=== PATIENT | male | born 1970 | race Caucasian/White ===

== ENCOUNTER → 2016-08-18 | Outpatient (CLI) | payer MEDICARE ==
[~2016-08-18] MED LIST: BACT800T5 PO; CLEO300C2 PO; COMBAER6 INH; DOXY100C PO; FLOM5CAP PO; FLON0.054; FLON1SPR; GEOD1CAP PO; IBUP800T23 PO; IBUP80TA PO; KLON0.5T PO; LAMI1TAB8 PO; LAMO300T PO; LEVA500T PO; LYRI100C10 PO; MIRT15TA3 PO; MUCI600T34 PO; NICO21DI5 TD; OXYC-299 PO; OXYC-517 PO; PERCOCET PO; PRIS100T PO; SELE6PA TD; SING10TA32 PO; VITATAB11 PO
== END ==
LOC: M OUTALCOH 09:08
PROVIDERS: ATTEND Psychiatry & Neurology Psychiatry
DX: F12.10 Cannabis abuse, uncomplicated (principal); F11.10 Opioid abuse, uncomplicated

== ENCOUNTER 2016-08-25 09:51 | Outpatient (RCR) | payer MEDICARE | END 2016-08-26 | disposition home or self-care (01) | LOC: M OUTALCOH 09:51 | PROVIDERS: ATTEND Psychiatry & Neurology Psychiatry | DX: F12.10 Cannabis abuse, uncomplicated (principal); F11.10 Opioid abuse, uncomplicated; F17.200 Nicotine dependence, unspecified, uncomplicated ==

== ENCOUNTER 2016-09-18 13:30 | Outpatient (RCR) | payer MEDICARE, MEDICAID | END 2016-09-23 | LOC: M OUTALCOH 13:30 | PROVIDERS: ATTEND Psychiatry & Neurology Psychiatry | DX: F12.10 Cannabis abuse, uncomplicated (principal); F11.10 Opioid abuse, uncomplicated; F17.200 Nicotine dependence, unspecified, uncomplicated ==

== ENCOUNTER 2016-10-23 16:00 | Outpatient (RCR) | payer MEDICARE, MEDICAID | END 2016-10-24 | LOC: M OUTALCOH 16:00 | PROVIDERS: ATTEND Psychiatry & Neurology Psychiatry | DX: F12.10 Cannabis abuse, uncomplicated (principal); F11.10 Opioid abuse, uncomplicated; F17.200 Nicotine dependence, unspecified, uncomplicated ==

== ENCOUNTER 2016-11-04 16:00 | Outpatient (RCR) | payer MEDICARE, MEDICAID | END 2016-11-23 | LOC: M OUTALCOH 16:00 | PROVIDERS: ATTEND Psychiatry & Neurology Psychiatry | DX: F12.10 Cannabis abuse, uncomplicated (principal); F11.10 Opioid abuse, uncomplicated; F17.200 Nicotine dependence, unspecified, uncomplicated ==

== ENCOUNTER → 2016-11-11 | Outpatient (CLI) | payer MEDICARE, MEDICAID ==
--- NOTE | 2016-11-11 19:02 | ECGEPIP ---
Stationary ECG Study [facility] Test Date: 2016-11-11 Pat Name: SAM CAPONE Department: Room: - Gender: M Fisher Trot Line: YVES : 1970 Requested By: Curtis Dimas Order Number: [id number] Reading MD: Paxton Bowden Measurements Intervals [place] Rate: 109 P: 56 LA: 152 QRS: 61 QRSD: 83 T: 78 QT: 317 QTc: 429 Interpretive Statements SINUS TACHYCARDIA WITH OCCASIONAL SUPRAVENTRICULAR PREMATURE COMPLEXES ABNORMAL RHYTHM ECG Electronically Signed On 11-11-2016 19:02:08 EDT by Paxton Bowden
== END ==
LOC: M EKG 14:39
PROVIDERS: ATTEND Family Medicine Addiction Medicine
DX: R00.2 Palpitations (principal)

== ENCOUNTER → 2019-09-08 | Outpatient (REF) | payer OTHER ==
[~2019-09-08] MED LIST changes: +FLOM0.4C39 PO; -FLOM5CAP PO; +IBUP1TAB7 PO; -IBUP800T23 PO; +LEVA1TAB2 PO; -LEVA500T PO; -LYRI100C10 PO; -MUCI600T34 PO; +MUCI600T37 PO; -NICO21DI5 TD; +NICO21DI6 TD; +OXYC-141 PO; -OXYC-299 PO; +PREG100CA PO
[2019-09-08 14:23] LABS: ALBUMIN 3.8 GM/DL (3.2-5.2); ALT/SGPT 29 U/L (12-78); BILIRUBIN,TOTAL 0.3 MG/DL (0.2-1.0); BLOOD UREA NITROGEN 12 MG/DL (7-18); CARBON DIOXIDE LEVEL 25 MEQ/L (21-32); CHLORIDE LEVEL 107 MEQ/L (98-107); CHOLESTEROL LEVEL 220 MG/DL (<200); CHOLESTEROL RISK RATIO 5.789 (<5); CREATININE FOR GFR 0.83 MG/DL (0.70-1.30); FREE T4 1.15 NG/DL (0.76-1.46); GLOMERULAR FILTRATION RATE > 60.0 (>60); GLUCOSE, FASTING 92 MG/DL (70-100); HDL CHOLESTEROL 38 MG/DL (>40); LDL CHOLESTEROL 147 MG/DL (<100); NON-HDL-C 182 MG/DL; POTASSIUM SERUM 4.3 MEQ/L (3.5-5.1); SODIUM LEVEL 140 MEQ/L (136-145); TOTAL PROTEIN 7.1 GM/DL (6.4-8.2); TRIGLYCERIDES LEVEL 175 MG/DL (<150)
[2019-09-08 14:25] LABS: TOTAL 25(OH) VITAMIN D 18.9 NG/ML (30.0-100.0)
[2019-09-08 14:31] LABS: HEMOGLOBIN A1c 5.7 %
[2019-09-08 14:53] LABS: BASO # 0.1 10^3/uL (0.0-0.2); BASO % 0.6 % (0.0-1.0); EOS # 0.4 10^3/uL (0.0-0.5); EOS % 2.9 % (0.0-3.0); HEMATOCRIT 48.3 % (42.0-52.0); HEMOGLOBIN 15.9 g/dl (13.5-17.5); LYMPH # 3.2 10^3/uL (1.5-5.0); LYMPH % 25.6 % (24.0-44.0); MEAN CORPUSCULAR HEMOGLOBIN 30.3 pg (27.0-33.0); MEAN CORPUSCULAR HGB CONC 32.9 g/dl (32.0-36.5); MEAN CORPUSCULAR VOLUME 92.2 fl (80.0-96.0); MONO # 0.8 10^3/uL (0.0-0.8); MONO % 6.6 % (0.0-5.0); NEUTROPHILS % 63.7 % (36.0-66.0); PLATELET COUNT, AUTOMATED 350 10^3/uL (150-450); RED BLOOD COUNT 5.24 10^6/uL (4.30-6.10); WHITE BLOOD COUNT 12.6 10^3/uL (4.0-10.0)
== END ==
LOC: M LAB REF 12:15
PROVIDERS: ATTEND Nurse Practitioner Family
DX: N40.1 Benign prostatic hyperplasia with lower urinary tract symptoms (principal); E55.9 Vitamin D deficiency, unspecified; E78.5 Hyperlipidemia, unspecified; M54.9 Dorsalgia, unspecified; F41.8 Other specified anxiety disorders; M79.7 Fibromyalgia
CPT/HCPCS: 80053; 80061; 82306; 83036; 84439; 84443; 85025; G0103

== ENCOUNTER → 2019-12-08 | Outpatient (REF) | payer OTHER ==
[2019-12-08 13:39] LABS: BASO # 0.1 10^3/uL (0.0-0.2); BASO % 0.7 % (0.0-1.0); EOS # 0.5 10^3/uL (0.0-0.5); HEMATOCRIT 45.3 % (42.0-52.0); HEMOGLOBIN 14.9 g/dl (13.5-17.5); LYMPH # 3.3 10^3/uL (1.5-5.0); LYMPH % 31.6 % (24.0-44.0); MEAN CORPUSCULAR HEMOGLOBIN 29.9 pg (27.0-33.0); MEAN CORPUSCULAR HGB CONC 32.9 g/dl (32.0-36.5); MONO % 9.4 % (0.0-5.0); NEUTROPHILS # 5.5 10^3/uL (1.5-8.5); NEUTROPHILS % 52.7 % (36.0-66.0); PLATELET COUNT, AUTOMATED 320 10^3/uL (150-450); RED BLOOD COUNT 4.98 10^6/uL (4.30-6.10); WHITE BLOOD COUNT 10.5 10^3/uL (4.0-10.0)
[2019-12-08 14:07] LABS: HEMOGLOBIN A1c 5.7 %
[2019-12-08 14:09] LABS: ALBUMIN 3.7 GM/DL (3.2-5.2); ALT/SGPT 41 U/L (12-78); BILIRUBIN,TOTAL 0.3 MG/DL (0.2-1.0); BLOOD UREA NITROGEN 11 MG/DL (7-18); CALCIUM LEVEL 8.7 MG/DL (8.5-10.1); CARBON DIOXIDE LEVEL 28 MEQ/L (21-32); CHLORIDE LEVEL 104 MEQ/L (98-107); CHOLESTEROL LEVEL 219 MG/DL (<200); CHOLESTEROL RISK RATIO 6.843 (<5); CREATININE FOR GFR 0.74 MG/DL (0.70-1.30); GLOMERULAR FILTRATION RATE > 60.0 (>60); GLUCOSE, FASTING 89 MG/DL (70-100); HDL CHOLESTEROL 32 MG/DL (>40); LDL CHOLESTEROL 138 MG/DL (<100); NON-HDL-C 187 MG/DL; POTASSIUM SERUM 4.5 MEQ/L (3.5-5.1); SODIUM LEVEL 138 MEQ/L (136-145); TOTAL 25(OH) VITAMIN D 15.7 NG/ML (30.0-100.0); TOTAL PROTEIN 7.3 GM/DL (6.4-8.2); TRIGLYCERIDES LEVEL 247 MG/DL (<150)
== END ==
LOC: M LAB REF 12:22
PROVIDERS: ATTEND Nurse Practitioner Family
DX: R73.03 Prediabetes (principal); E78.5 Hyperlipidemia, unspecified; R03.0 Elevated blood-pressure reading, without diagnosis of hypertension; F17.200 Nicotine dependence, unspecified, uncomplicated; E55.9 Vitamin D deficiency, unspecified; K21.9 Gastro-esophageal reflux disease without esophagitis

== ENCOUNTER 2020-11-30 05:54 | Emergency (ER) | payer OTHER ==
[~2020-11-30] VITALS: Ht 170.2 cm; Wt 97.3 kg
[2020-11-30] MEDS ORDERED: NS 1,000 ML IV ONE (07:00)
[2020-11-30] MEDS ORDERED: ONDANSETRON 4MG/2ML VIAL IV ONE (07:00)
--- NOTE | 2020-11-30 07:42 | REP ---
INDICATION: Abdominal Pain. COMPARISON: Comparison chest x-ray March 24, 2014.. TECHNIQUE: Three views including upright chest radiograph. FINDINGS: Upright chest radiograph is unremarkable. There is no evidence of infiltrate or free subdiaphragmatic air. Heart size is normal. Pulmonary vasculature is not increased. Pleural angles are sharp. Supine and erect views of the abdomen demonstrate a normal bowel gas pattern. The psoas margins and the flank stripes are intact. There is no evidence of mass, organomegaly, or pathologic calcification. IMPRESSION: Negative acute abdominal series. <Electronically signed by Mario James > 11/30/20 0784
[2020-11-30 07:53] LABS: BASO # 0.1 10^3/uL (0.0-0.2); BASO % 0.4 % (0.0-1.0); EOS # 0.2 10^3/uL (0.0-0.5); EOS % 1.4 % (0.0-3.0); HEMATOCRIT 41.6 % (42.0-52.0); HEMOGLOBIN 14.2 g/dl (13.5-17.5); LYMPH # 2.5 10^3/uL (1.5-5.0); LYMPH % 14.3 % (24.0-44.0); MEAN CORPUSCULAR HEMOGLOBIN 30.3 pg (27.0-33.0); MEAN CORPUSCULAR HGB CONC 34.1 g/dl (32.0-36.5); MEAN CORPUSCULAR VOLUME 88.9 fl (80.0-96.0); MONO # 0.8 10^3/uL (0.0-0.8); MONO % 4.7 % (2.0-8.0); NEUTROPHILS # 13.5 10^3/uL (1.5-8.5); NEUTROPHILS % 78.5 % (36.0-66.0); PLATELET COUNT, AUTOMATED 330 10^3/uL (150-450); RED BLOOD COUNT 4.68 10^6/uL (4.30-6.10); WHITE BLOOD COUNT 17.1 10^3/uL (4.0-10.0)
[2020-11-30 08:18] LABS: ALBUMIN 3.6 GM/DL (3.2-5.2); ALT/SGPT 39 U/L (12-78); BILIRUBIN,DIRECT < 0.1 MG/DL (0.0-0.2); BILIRUBIN,TOTAL 0.6 MG/DL (0.2-1.0); BLOOD UREA NITROGEN 11 MG/DL (7-18); CALCIUM LEVEL 8.8 MG/DL (8.5-10.1); CARBON DIOXIDE LEVEL 24 MEQ/L (21-32); CHLORIDE LEVEL 111 MEQ/L (98-107); CK-MB VALUE MASS 3.3 NG/ML (<3.6); CPK CREATINE PHOSPHOKINASE 773 U/L (39-308); CREATININE FOR GFR 0.75 MG/DL (0.70-1.30); GLOMERULAR FILTRATION RATE > 60.0 (>60); GLUCOSE, FASTING 111 MG/DL (70-100); LIPASE 973 U/L (73-393); MB/CK RELATIVE INDEX 0.43 (< OR =4); POTASSIUM SERUM 4.4 MEQ/L (3.5-5.1); SODIUM LEVEL 141 MEQ/L (136-145); TROPONIN I < 0.02 NG/ML (< 0.10)
[2020-11-30 08:21] LABS: AMPHETAMINES LEVEL URINE NEGATIVE (NEGATIVE); BARBITURATES URINE NEGATIVE (NEGATIVE); BENZODIAZEPINES URINE NEGATIVE (NEGATIVE); CANNABINOIDS URINE POSITIVE (NEGATIVE); COCAINE METABOLITE URINE NEGATIVE (NEGATIVE); METHADONE URINE NEGATIVE (NEGATIVE); OPIATES URINE NEGATIVE (NEGATIVE); PHENCYCLIDINE URINE NEGATIVE (NEGATIVE)
[2020-11-30] MEDS ORDERED: METOCLOPRAMIDE INJ 10MG/2ML VIAL (J2765 PER 1) IV ONE (08:30)
[2020-11-30] MEDS ORDERED: HALOPERIDOL 5MG/ML VIAL (J1630 PER 1) IV STA (09:04)
[2020-11-30] MEDS ORDERED: ISOVUE-370 76% 100ML VIAL As Ordered ONE (09:12)
--- NOTE | 2020-11-30 09:43 | REP ---
INDICATION: mid abd pain, n/v, leukocytosis COMPARISON: 01/25/2016. TECHNIQUE: CT Scan of the abdomen and pelvis was performed with intravenous administration of 100 cc of Isovue 370, without oral contrast. Sagittal and coronal reconstruction images are performed. FINDINGS: Lung bases: 2 tiny calcified granulomas seen in the right lower lobe. Liver: There is diffuse fatty infiltration of the liver. Calcified granulomas seen at the dome of the liver. Gallbladder: Unremarkable. Spleen: Normal. Adrenals: Bilateral adrenal nodules are unchanged in size, on the right measuring approximately 3.3 cm in maximum diameter and on the left 1.8 cm. There are 2 new coarse calcifications in superior aspect of the right adrenal nodule. Pancreas: Normal. Kidneys: Normal. Small and large bowel: There is diverticulosis of the left colon with no CT evidence of acute diverticulitis.. Free fluid: None. Abdominal aorta: No aneurysm or dissection. Adenopathy: None. Appendix: Prior appendectomy. Osseous structures: There is spondylolysis of L5 with very mild anterior grade 1 spondylolisthesis of L5 on S1. There are mild degenerative disc changes at L4-5 and L5-S1.. Pelvis: No mass. IMPRESSION: Chronic findings as discussed above. No CT evidence of acute pathology in the abdomen or pelvis. <Electronically signed by Kenton Gonzalez > 11/30/20 0939
[2020-11-30] MEDS ORDERED: cloNIDine HCL 0.3 MG/24 HR PATCH TOP STA (10:34)
[2020-11-30] MEDS ORDERED: REGL5TAB2 PO (10:37)
[2020-11-30 10:52] VITALS: BP 138/98
--- NOTE | 2020-12-02 08:39 | ED PDOC ---
Post-Departure Follow-Up radiology report faxed to balbina Manriquez Sarah MD December 02, 2020 08:39
== END 2020-11-30 11:21 | disposition home or self-care (01) ==
LOC: M ED 05:54
DX: F11.23 Opioid dependence with withdrawal (principal); R10.9 Unspecified abdominal pain; R11.2 Nausea with vomiting, unspecified; F43.10 Post-traumatic stress disorder, unspecified; J44.9 Chronic obstructive pulmonary disease, unspecified; K85.10 Biliary acute pancreatitis without necrosis or infection; E27.8 Other specified disorders of adrenal gland; I10 Essential (primary) hypertension; G47.30 Sleep apnea, unspecified; F17.200 Nicotine dependence, unspecified, uncomplicated; F12.10 Cannabis abuse, uncomplicated
CPT/HCPCS: 74021; 74177; 80048; 80076; 80307; 81001; 82550; 82553; 83690; 84484; 85025; 96361; 96374; 96375; 99284; J1630; J2405; J2765; Q9967

== ENCOUNTER → 2021-03-21 | Outpatient (REF) | payer OTHER ==
[~2021-03-21] MED LIST changes: -DOXY100C PO; +DOXY100C3 PO; +REGL5TAB2 PO
[2021-03-21 18:43] LABS: BASO # 0.1 10^3/uL (0.0-0.2); BASO % 0.4 % (0.0-1.0); EOS # 0.3 10^3/uL (0.0-0.5); EOS % 2.5 % (0.0-3.0); HEMATOCRIT 41.4 % (42.0-52.0); HEMOGLOBIN 13.7 g/dl (13.5-17.5); LYMPH # 2.3 10^3/uL (1.5-5.0); MEAN CORPUSCULAR HEMOGLOBIN 30.7 pg (27.0-33.0); MEAN CORPUSCULAR HGB CONC 33.1 g/dl (32.0-36.5); MEAN CORPUSCULAR VOLUME 92.8 fl (80.0-96.0); MONO # 0.6 10^3/uL (0.0-0.8); MONO % 4.7 % (2.0-8.0); NEUTROPHILS # 8.4 10^3/uL (1.5-8.5); NEUTROPHILS % 71.7 % (36.0-66.0); RED BLOOD COUNT 4.46 10^6/uL (4.30-6.10); WHITE BLOOD COUNT 11.7 10^3/uL (4.0-10.0)
[2021-03-21 19:15] LABS: HEMOGLOBIN A1c 5.9 %
[2021-03-21 19:16] LABS: BLOOD UREA NITROGEN 18 MG/DL (7-18); CALCIUM LEVEL 9.4 MG/DL (8.5-10.1); CARBON DIOXIDE LEVEL 24 MEQ/L (21-32); CHLORIDE LEVEL 109 MEQ/L (98-107); CREATININE FOR GFR 0.79 MG/DL (0.70-1.30); GLOMERULAR FILTRATION RATE > 60.0 (>60); GLUCOSE, FASTING 102 MG/DL (70-100); POTASSIUM SERUM 4.6 MEQ/L (3.5-5.1); SODIUM LEVEL 140 MEQ/L (136-145)
[2021-03-21 19:17] LABS: ALBUMIN 4.1 GM/DL (3.2-5.2); ALT/SGPT 47 U/L (12-78); BILIRUBIN,TOTAL 0.4 MG/DL (0.2-1.0); CHOLESTEROL LEVEL 241 MG/DL (<200); CHOLESTEROL RISK RATIO 6.342 (<5); FERRITIN 122 NG/ML (26-388); HDL CHOLESTEROL 38 MG/DL (>40); IRON (FE) 65 UG/DL (65-175); LDL CHOLESTEROL 162 MG/DL (<100); NON-HDL-C 203 MG/DL; PERCENT SATURATION 21.2 % (19.7-50.0); TOTAL IRON BINDING CAPACITY 307 UG/DL (250-450); TOTAL PROTEIN 7.4 GM/DL (6.4-8.2); TRIGLYCERIDES LEVEL 203 MG/DL (<150)
[2021-03-21 19:19] LABS: TOTAL 25(OH) VITAMIN D 19.9 NG/ML (30.0-100.0)
[2021-03-21 19:26] LABS: FOLATE 13.2 NG/ML; VITAMIN B12 LEVEL 553 PG/ML
[2021-03-21 19:58] LABS: HEPATITIS C VIRUS ABY INDEX < 0.0 INDEX (<0.8)
[2021-03-21 19:59] LABS: HIV 1&2 SCREEN CENTAUR NEGATIVE (NEGATIVE)
[2021-03-25 23:14] LABS: PSA TOTAL 1.5 ng/mL (0.0-4.0)
== END ==
LOC: M LAB REF 17:57
PROVIDERS: ATTEND Nurse Practitioner Family
DX: K21.9 Gastro-esophageal reflux disease without esophagitis (principal); F31.9 Bipolar disorder, unspecified; F17.200 Nicotine dependence, unspecified, uncomplicated; R73.03 Prediabetes; E78.5 Hyperlipidemia, unspecified; Z79.899 Other long term (current) drug therapy

== ENCOUNTER → 2021-05-31 | Outpatient (CLI) | payer OTHER ==
[~2021-05-31] MED LIST changes: +OMEP-218 PO; +SUBO8MIS SL; +TAMS1CAP17 PO
== END ==
LOC: M LABSMTC 11:30
PROVIDERS: ATTEND Anesthesiology
DX: Z01.818 Encounter for other preprocedural examination (principal); Z11.52 Encounter for screening for COVID-19

== ENCOUNTER → 2021-06-05 | Day surgery (SDC) | payer OTHER ==
[~2021-06-05] VITALS: Ht 167.6 cm; Wt 97.0 kg
[~2021-06-05] MED LIST changes: +BUPIVACAINE HCL 0.5% 30 ML VIAL As Ordered ONE; +LIDOCAINE 1% MDV 20ML VIAL As Ordered ONE; +LR 1,000 ML IV ONE; +ceFAZolin SOD 2 GM in IV 1 EA IV ONE; +dexameTHASONE 4 MG/ML 1ML VIAL (J1100 PER 1MG) As Ordered ONE
--- OUTSIDE RECORDS SUMMARY | 2021-06-05 10:37 | CCD ---
Author Organization Unknown Address [address] [place] [address] Phone [phone] Care Team Providers Care Special Diet Cook Name Role Phone Colleen Manriquez Unavailable Unavailable Allergies Code Code System Name Reaction Severity Status Onset NKDA Medications Name Status Start Date Stop Date amoxicillin 500 mg capsule TAKE TWO CAPSULES BY MOUTH FOR FIRST DOSE THEN TAKE ONE CAPSULE BY MOUTH EVERY 8 HOURS UNTIL GONE Completed 03/13/2021 buprenorphine 8 mg-naloxone 2 mg subling ual film PLACE 2 1/2 FILMS UNDER THE TONGUE ONCE DAILY FOR OPIOID DEPENDENCE MAXIMUM DAILY DOSE 2 1/2 FILMS Active Not available gabapentin 100 mg capsule TAKE ONE CAPSULE BY MOUTH TWICE DAILY Completed 0 03/13/2021 ibuprofen 800 mg tablet TAKE ONE TABLET BY MOUTH EVERY EIGHT HOURS NEEDED Completed 03/13/2021 naproxen 500 mg tablet TAKE ONE TABLET BY MOUTH TWICE DAILY Active No t available Nicotrol 10 mg inhalation cartridge use as directed to assist with smoking cessation. Active Not available omeprazole 20 mg capsule,delayed release TAKE ONE CAPSULE BY MOUTH ONCE DAILY Active No t available tamsulosin 0.4 mg capsule TAKE ONE CAPSULE BY MOUTH ONCE DAILY Active No t available Problems Name Status Onset Date Source Bipolar Disorder Active 03/07/2015 History Obstructive Sleep Apnea Syndrome Active 03/07/2015 History Fibromyalgia Active 03/07/2015 History Emotional State Finding Active 03/07/2015 History Backache Active 04/23/2015 History Disorder of Prostate Active 05/16/2015 History Vitamin D Deficiency Active 12/18/2015 History Hyperlipidemia Active 12/18/2015 History Cellulitis of Left Upper Limb Active 04/11/2016 Hi story Current Drug User Active 05/16/2016 History Palpitations Active 11/11/2016 History Cough Active 06/12/2017 History Finding of Esophagus Active 06/12/2017 History Nondependent Opioid Abuse in Remission Active 8 History Finding of Neck Region Active 02/16/[address] Concept Active 02/16/2019 History Lower Urinary Tract Finding Active 02/16/2019 Hist ory Nicotine Dependence Active 08/11/2019 History Elevated Blood-pressure Reading without Diagnosis of Hyperte nsion Active 08/11/2019 History Clinical Finding Active 08/11/2019 History Generalized Anxiety Disorder Active 09/05/2019 His tory Prediabetes Active 09/15/2019 History Finding by Site Active 09/15/2019 History Mild Recurrent Major Depression Active 09/19/2019 History Posttraumatic Stress Disorder Active 09/19/2019 Hi story Ear Finding Active 12/15/2019 History Hearing Finding Active 12/15/2019 History Patient Asked to Attend Active 12/15/2019 History Dental Caries on Smooth Surface Penetrating into Pulp Active 01/06/2020 History Procedures Notes: No known surgical history Results Lab Results Date Name Specimen Result Interpretation Description Value Range Status Address 03/21/2021 HbA1C (Hemoglobin a1C), Blood Blood venous Normal Hemoglobin a1C 5.9 % [facility]: [address] [place] [address] Blood venous High Estimated Average Glucose 123 mg/dL 60-110 mg/dL [facility]: [address] [place] [address] 03/21/2021 CBC W/ Auto Diff Blood venous High White Blood C ount 11.7 10 4.0-10.0 10 [facility]: [address] [facility] Blood venous Normal Red Blood Count 4.46 10 4.30- 6.10 10 [facility]: [address] [facility] Blood venous Normal Hemoglobin 13.7 g/dL 13.5-17. 5 g/dL [facility]: [address] [facility] Blood venous Low Hematocrit 41.4 % 42.0-52.0 % [facility]: [address] [facility] Blood venous Normal Mean Corpuscular Volume 92.8 fL 80.0-96.0 fL [facility]: [address] [facility] Blood venous Normal Mean Corpuscular Hemoglob in 30.7 pg 27.0-33.0 pg [facility]: [address] [facility] Blood venous Normal Mean Corpuscular HGB Conc 33.1 g/dL 32.0-36.5 g/dL [facility]: [address] [facility] Blood venous Normal Red Cell Distribution Wid th 14.2 % 11.5-14.5 % [facility]: [address] [place] [address] Blood venous Normal Platelet Count, Automated tnp 10 150-450 10 [facility]: [address] [place] [address] Blood venous High Neutrophils % 71.7 % 36.0-66. 0 % [facility]: [address] [place] [address] Blood venous Low Lymph % 20.0 % 24.0-44.0 % [facility]: [address] [place] [address] Blood venous Normal Berks % 4.7 % 2.0-8.0 % [facility]: [address] [place] [address] Blood venous Normal Eos % 2.5 % 0.0-3.0 % [facility]: [address] [place] [address] Blood venous Normal Baso % 0.4 % 0.0-1.0 % [facility]: [address] [place] [address] Blood venous Normal Immature Granulocyte % 0.7 % 0-3.0 % [facility]: [address] [place] [address] Blood venous Normal Nucleated Red Blood Cell % 0. 0 % 0-0 % [facility]: [address] [place] [address] Blood venous Normal Neutrophils # 8.4 10 1.5-8.5 10 [facility]: [address] [place] [address] Blood venous Normal Lymph # 2.3 10 1.5-5.0 10 [facility]: [address] [place] [address] Blood venous Normal Berks # 0.6 10 0.0-0.8 10 [facility]: [address] [place] [address] Blood venous Normal Eos # 0.3 10 0.0-0.5 10 [facility]: [address] [place] [address] Blood venous Normal Baso # 0.1 10 0.0-0.2 10 [facility]: [address] [place] [address] 03/21/2021 CMP, Serum or Plasma Blood venous High Glu cose, Fasting 102 mg/dL 70-100 mg/dL [facility] nter: [address], [place] Blood venous Normal Blood Urea Nitrogen 18 mg/dL 7-18 mg/dL [facility]: [address] [facility] Blood venous Normal Creatinine for GFR 0.79 mg/dL 0.70-1.30 mg/dL [facility]: [address] [facility] Blood venous Normal Glomerular Filtration Rate > 60.0 >60 [facility]: [address] [facility] Blood venous Normal Sodium Level 140 mEq/L 136-14 5 mEq/L [facility]: [address] [facility] Blood venous Normal Potassium Serum 4.6 mEq/L 3.5 -5.1 mEq/L [facility]: [address] [facility] Blood venous High Chloride Level 109 mEq/L 98-1 07 mEq/L [facility]: [address] [facility] Blood venous Normal Carbon Dioxide Level 24 mEq/L 21-32 mEq/L [facility]: [address] [facility] Blood venous Low Anion Gap 7 mEq/L 8-16 mEq/L [facility]: [address] [facility] Blood venous Normal Calcium Level 9.4 mg/dL 8.5-1 0.1 mg/dL [facility]: [address] [facility] Blood venous Normal AST/SGOT 23 U/L 7-37 U/L [facility]: [address] [facility] Blood venous Normal ALT/SGPT 47 U/L 12-78 U/L [facility]: [address] [facility] Blood venous Normal Alkaline Phosphatase 108 U/L 45-117 U/L [facility]: [address] [facility] Blood venous Normal Bilirubin,total 0.4 mg/dL 0.2 -1.0 mg/dL [facility]: [address] [facility] Blood venous Normal Total Protein 7.4 gm/dL 6.4-8 .2 gm/dL [facility]: [address] [facility] Blood venous Normal Albumin 4.1 gm/dL 3.2-5.2 gm/ dL [facility]: [address] [place] [address] Blood venous Normal Albumin/globulin Ratio 1.2 [facility]: 0 [facility] 03/21/2021 Hepatitis C Ab, Serum Blood venous Normal Hepatitis C Virus Fe Index < 0.0 index <0.8 index [facility]: [address] [place] [address] 03/21/2021 Lipid Panel, Blood Blood venous High Trigl ycerides Level 203 mg/dL <150 mg/dL [facility] nter: [address] [facility] Blood venous High Cholesterol Level 241 mg/dL < 200 mg/dL [facility]: [address] [place] [address] Blood venous Low HDL Cholesterol 38 mg/dL >40 mg/dL [facility]: [address] [place] [address] Blood venous High LDL Cholesterol 162 mg/dL <10 0 mg/dL [facility]: [address] [place] [address] Blood venous Normal Non-hdl-c 203 mg/dL [facility]: [address] [place] [address] Blood venous High Cholesterol Risk Ratio 6.342 <5 [facility]: [address] [place] [address] 03/21/2021 TIBC (Total Iron-binding Capacity), Serum Normal Iron (Fe) 65 ug/dL 65-175 ug/dL [facility] nter: [address] [place] [address] Normal Total Iron Binding Capacity 307 ug/d L 250-450 ug/dL [facility]: [address] [place] [address] Normal Percent Saturation 21.2 % 19.7-50.0 % [facility]: [address] [place] [address] 03/21/2021 TSH + Free T4, Serum Blood venous Normal Thyroid Stimulating Hormone 1.410 uIU/mL 0.358-3.740 uIU/mL [facility]: [address] [place] [address] Blood venous Normal Free T4 1.10 NG/dL 0.76-1.46 NG/dL [facility]: [address] [place] [address] 03/21/2021 Vitamin B12 + Folate, Serum or Blood Blood venous Normal Vitamin B12 Level 553 pg/mL Final [facility]: [address] [facility] Blood venous Normal Folate 13.2 NG/mL Daphney l [facility]: [address] [facility] 03/21/2021 Vitamin D, 25-Hydroxy, Total, Serum Blood venous Low Total 25([place]) Vitamin D 19.9 NG/mL 30.0-100.0 NG/mL Final [facility]: [address] [facility] 03/21/2021 Ferritin, Serum or Plasma Normal Ferritin 122 NG/mL 26-388 NG/mL Final [facility]: [address] [facility] 03/21/2021 HIV 1+2 AB + HIV 1 P24 Ag, Qualitative Immunoassay, Serum Normal HIV 1&2 Screen Centaur negative negative Final [facility]: [address] [facility] Past En[facility]ters [facility]21[facility] [address] [place] [phone], Ph. 03/13/2021 Body Mass Index 30+ - Obesity; Gastroesophageal Reflux Disease without Esophagitis; Nicotine Dependence with Current Use; Benign Prostatic Hypertrophy with Outflow Obstruction; History of Substance Abuse; Bunion; Adult Health [facility] [address] [place] [phone], Ph. Social History Tobacco Smoking Status Heavy Tobacco Smoker (1 pack per a da y) Vaccine List Vaccine Type COVID-19, mRNA, LNP-S, PF, 100 mcg/0.5 m L dose 11/22/2020 12/25/2020 Plan of Care Patient Instructions Physical exam done today. Please continu e medications as prescribed. Please continue healthy diet and physical activities. Please try to limit sugars and carbohydrates in your diet. Please try to maintain adequate intake of water daily. Reminders Provider Appointments None recorded. Lab None recorded. Referral None recorded. Procedures None recorded. Surgeries None recorded. Imaging None recorded. Vitals 03/21/2021 08:20AM NURSE LAB COLLECTION Height 66 in 03/13/2021 02:00PM ED FOLLOW-UP Height Weight BMI Blood Pressure 66 in 207 lbs 4 oz 33.5 kg/m2 130/81 mm[Hg] 12/15/2019 Height Weight BMI Blood Pressure 65 in 203 lbs 8 oz 33.99 kg/m2 123/79 mm[Hg] 09/15/2019 Height Weight BMI Blood Pressure 65 in 200 lbs 33.40 kg/m2 135/86 mm[Hg] 08/11/2019 Height Weight BMI Blood Pressure 65 in 195 lbs 32.57 kg/m2 144/96 mm[Hg] 02/16/2019 Height Weight BMI Blood Pressure 65 in 202 lbs 33.74 kg/m2 122/87 mm[Hg]
--- OUTSIDE RECORDS SUMMARY | 2021-06-05 10:37 | CCD ---
Author Organization Unknown Address [address] [place] [address] Phone [phone] Care Team Providers Care Marketing Services Coordinator Name Role Phone Colleen Manriquez Unavailable Unavailable [...] Not available omeprazole 20 mg capsule,delayed release Take 1 capsule every day by oral route. Active Not available tamsulosin 0.4 mg capsule TAKE ONE [...] No known surgical history Results Lab Results None recorded. Past Encounters 03/13/2021 Body Mass Index 30+ - Obesity; Gastroesophageal Reflux Disease without Esophagitis; Nicotine Dependence with Current Use; Benign Prostatic Hypertrophy with Outflow Obstruction; History of Substance Abuse; Bunion; Adult Health Examination Colleen Manriquez, [facility]: [address] [place] [phone], Ph. Social History Tobacco Smoking Status Heavy [...] Surgeries None recorded. Imaging None recorded. Vitals 03/13/2021 02:00PM ED FOLLOW-UP Height Weight BMI [...]
--- OUTSIDE RECORDS SUMMARY | 2021-06-05 10:37 | CCD | Continuity of Care Document ---
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 Nguyễn Monae DPM Onset: 05/28/2021 Social History Type Date Description Comments Sex Unknown ETOH Use Denies alcohol use Tobacco Use Start: Unknown End: Unknown Patient is a former smoker smoked for 25 years uses vape pen now Allergies and adverse reactions Description No Known Drug Allergies Medications Active Medications SIG Qnty Indications Ordering Provide r Date Omeprazole 20mg Capsules DR Take One Capsule By Mouth Once Daily Unknown Tamsulosin HCL 0.4mg Capsules Take One Capsule By Mouth Once Daily Unknown Buprenorphine HCL 8mg Tablets Sub Dissolve 1 1/2 Tablets In Mouth Once Daily Maximum Daily Dose 1 1/2 Tablet Unknown Buprenorphine Hydrochloride/Naloxone Hyd rochloride 8-2mg Film Place 1 Film Under The Tongue Twice A Da y Maximum Daily Dose 2 Films Unknown Immunizations Description No Information Available Vital Signs Date Vital Result Comment 05/23/2021 9:48am Height 66 inches 5'6" Weight 207.00 lb BP Systolic 130 mmHg BP Diastolic 81 mmHg Heart Rate 82 /min BMI (Body Mass Index) 33.4 kg/m2 Results Description No Information Available Procedures Date Code Description Status 05/23/2021 [address] Office/Outpatient [facility] 30 -44 Minutes Completed Medical Devices Description No Information Available Encounters Type Date Location Provider Dx Diagnosis Office Visit 05/23/2021 9:15a [place] [facility] Nguyễn Monae DPM D21.22 Jamie neoplm of connctv/soft tiss of left lower limb, inc hip Assessments Date Code Description Provider 05/23/2021 D21.22 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
--- OUTSIDE RECORDS SUMMARY | 2021-06-05 10:38 | CCD ---
Author Author [facility] Organization [facility] Address Unknown Phone Unavailable Care Team Providers Care Shot Lighter Name Role Phone Declan, Colleen CARE CENTER MANAGER CARE CENTER MANAGER Unavailable Unavailable Declan, A Colleen CARE CENTER MANAGER Unavailable Unavailable Declan, A Colleen CARE CENTER MANAGER Unavailable Unavailable Declan, A Colleen CARE CENTER MANAGER Unavailable Unavailable Declan, A Colleen CARE CENTER MANAGER Unavailable Unavailable Declan, A Colleen CARE CENTER MANAGER Unavailable Unavailable Declan, A Colleen CARE CENTER MANAGER Unavailable Unavailable Declan, A Colleen CARE CENTER MANAGER Unavailable Unavailable Declan, A Colleen CARE CENTER MANAGER Unavailable Unavailable Declan, A Colleen CARE CENTER MANAGER Unavailable Unavailable Declan, A Colleen CARE CENTER MANAGER Unavailable Unavailable Declan, A Colleen CARE CENTER MANAGER Unavailable Unavailable [place], A Colleen CARE CENTER MANAGER Unavailable Unavailable [place], A Colleen CARE CENTER MANAGER Unavailable Unavailable [place], A Colleen CARE CENTER MANAGER Unavailable Unavailable [place], A Colleen CARE CENTER MANAGER Unavailable Unavailable [place], A Colleen CARE CENTER MANAGER Unavailable Unavailable [place], A Colleen CARE CENTER MANAGER Unavailable Unavailable [place], A Colleen CARE CENTER MANAGER Unavailable Unavailable [place], A Colleen CARE CENTER MANAGER Unavailable Unavailable [place], A Colleen CARE CENTER MANAGER Unavailable Unavailable [place], A Colleen CARE CENTER MANAGER Unavailable Unavailable [place], A Colleen CARE CENTER MANAGER Unavailable Unavailable [place], A Colleen CARE CENTER MANAGER Unavailable Unavailable [place], A Colleen CARE CENTER MANAGER Unavailable Unavailable [place], A Colleen CARE CENTER MANAGER Unavailable Unavailable [place], A Colleen CARE CENTER MANAGER Unavailable Unavailable [place], A Colleen CARE CENTER MANAGER Unavailable Unavailable [place], A Colleen CARE CENTER MANAGER Unavailable Unavailable [place], A Colleen CARE CENTER MANAGER Unavailable Unavailable [place], A Colleen CARE CENTER MANAGER Unavailable Unavailable [place], A Colleen CARE CENTER MANAGER Unavailable Unavailable MAJAK, R KARTHIK DPM Unavailable Unavailable MAJAK, R KARTHIK DPM Unavailable Unavailable MAJAK, R KARTHIK DPM Unavailable Unavailable MAJAK, R KARTHIK DPM Unavailable Unavailable MAJAK, R KARTHIK DPM Unavailable Unavailable MAJAK, R KARTHIK DPM Unavailable Unavailable MAJAK, R KARTHIK DPM Unavailable Unavailable MAJAK, R KARTHIK DPM Unavailable Unavailable MAJAK, R KARTHIK DPM Unavailable Unavailable MAJAK, R KARTHIK DPM Unavailable Unavailable MAJAK, R KARTHIK DPM Unavailable Unavailable MAJAK, R KARTHIK DPM Unavailable Unavailable MAJAK, R KARTHIK DPM Unavailable Unavailable MAJAK, R KARTHIK DPM Unavailable Unavailable MAJAK, R KARTHIK DPM Unavailable Unavailable MAJAK, R KARTHIK DPM Unavailable Unavailable MAJAK, R KARTHIK DPM Unavailable Unavailable MAJAK, R KARTHIK DPM Unavailable Unavailable MAJAK, R KARTHIK DPM Unavailable Unavailable MAJAK, R KARTHIK DPM Unavailable Unavailable MAJAK, R KARTHIK DPM Unavailable Unavailable MAJAK, R KARTHIK DPM Unavailable Unavailable MAJAK, R KARTHIK DPM Unavailable Unavailable MAJAK, R KARTHIK DPM Unavailable Unavailable MAJAK, R KARTHIK DPM Unavailable Unavailable MAJAK, R KARTHIK DPM Unavailable Unavailable MAJAK, R KARTHIK DPM Unavailable Unavailable MAJAK, R KARTHIK DPM Unavailable Unavailable MAJAK, R KARTHIK DPM Unavailable Unavailable MAJAK, R KARTHIK DPM Unavailable Unavailable MAJAK, R KARTHIK DPM Unavailable Unavailable MAJAK, R KARTHIK DPM Unavailable Unavailable Declan, A Colleen CARE CENTER MANAGER Unavailable Unavailable Declan, A Colleen CARE CENTER MANAGER Unavailable Unavailable Declan, A Colleen CARE CENTER MANAGER Unavailable Unavailable Declan, A Colleen CARE CENTER MANAGER Unavailable Unavailable Declan, A Colleen CARE CENTER MANAGER Unavailable Unavailable Declan, A Colleen CARE CENTER MANAGER Unavailable Unavailable Declan, A Colleen CARE CENTER MANAGER Unavailable Unavailable Declan, A Colleen CARE CENTER MANAGER Unavailable Unavailable Declan, A Colleen CARE CENTER MANAGER Unavailable Unavailable Declan, A Colleen CARE CENTER MANAGER Unavailable Unavailable Declan, A Colleen CARE CENTER MANAGER Unavailable Unavailable Declan, A Colleen CARE CENTER MANAGER Unavailable Unavailable [place], A Colleen CARE CENTER MANAGER Unavailable Unavailable [place], A Colleen CARE CENTER MANAGER Unavailable Unavailable [place], A Colleen CARE CENTER MANAGER Unavailable Unavailable [place], A Colleen CARE CENTER MANAGER Unavailable Unavailable [place], A Colleen CARE CENTER MANAGER Unavailable Unavailable [place], A Colleen CARE CENTER MANAGER Unavailable Unavailable [place], A Colleen CARE CENTER MANAGER Unavailable Unavailable [place], A Colleen CARE CENTER MANAGER Unavailable Unavailable [place], A Colleen CARE CENTER MANAGER Unavailable Unavailable [place], A Colleen CARE CENTER MANAGER Unavailable Unavailable [place], A Colleen CARE CENTER MANAGER Unavailable Unavailable [place], A Colleen CARE CENTER MANAGER Unavailable Unavailable [place], A Colleen CARE CENTER MANAGER Unavailable Unavailable [place], A Colleen CARE CENTER MANAGER Unavailable Unavailable [place], A Colleen CARE CENTER MANAGER Unavailable Unavailable [place], A Colleen CARE CENTER MANAGER Unavailable Unavailable [place], A Colleen CARE CENTER MANAGER Unavailable Unavailable [place], A Colleen CARE CENTER MANAGER Unavailable Unavailable Declan, A Colleen CARE CENTER MANAGER Unavailable Unavailable Scordo, M Sonya PA Unavailable Unavailable Scordo, M Sonya PA Unavailable Unavailable Scordo, M Sonya PA Unavailable Unavailable Scordo, M Sonya PA Unavailable Unavailable Scordo, M Sonya PA Unavailable Unavailable Scordo, M Sonya PA Unavailable Unavailable Scordo, M Sonya PA Unavailable Unavailable Scordo, M Sonya PA Unavailable Unavailable Scordo, M Sonya PA Unavailable Unavailable Scordo, M Sonya PA Unavailable Unavailable Scordo, M Sonya PA Unavailable Unavailable Scordo, M Sonya PA Unavailable Unavailable Scordo, M Sonya PA Unavailable Unavailable Scordo, M Sonya PA Unavailable Unavailable Scordo, M Sonya PA Unavailable Unavailable Scordo, M Sonya PA Unavailable Unavailable Scordo, M Sonya PA Unavailable Unavailable Scordo, M Sonya PA Unavailable Unavailable Scordo, M Sonya PA Unavailable Unavailable Scordo, M Sonya PA Unavailable Unavailable Scordo, M Sonya PA Unavailable Unavailable Scordo, M Sonya PA Unavailable Unavailable Scordo, M Sonya PA Unavailable Unavailable Scordo, M Sonya PA Unavailable Unavailable Scordo, M Sonya PA Unavailable Unavailable Scordo, M Sonya PA Unavailable Unavailable Scordo, M Sonya PA Unavailable Unavailable Scordo, M Sonya PA Unavailable Unavailable Scordo, M Sonya PA Unavailable Unavailable Scordo, M Sonya PA Unavailable Unavailable Scordo, M Sonya PA Unavailable Unavailable Scordo, M Sonya PA Unavailable Unavailable Scordo, M Sonya PA Unavailable Unavailable Scordo, M Sonya PA Unavailable Unavailable Scordo, M Sonya PA Unavailable Unavailable Scordo, M Sonya PA Unavailable Unavailable Scordo, M Sonya PA Unavailable Unavailable Scordo, M Sonya PA Unavailable Unavailable Scordo, M Sonya PA Unavailable Unavailable Scordo, M Sonya PA Unavailable Unavailable Scordo, M Sonya PA Unavailable Unavailable Scordo, M Sonya PA Unavailable Unavailable Scordo, M Sonya PA Unavailable Unavailable Scordo, M Sonya PA Unavailable Unavailable Scordo, M Sonya PA Unavailable Unavailable Scordo, M Sonya PA Unavailable Unavailable Scordo, M Sonya PA Unavailable Unavailable Re-disclosure Warning The records that you are about to access may contain information from federally-assisted alcohol or drug abuse programs. If such information is present, then the following federally mandated warning applies: This information has been disclosed to you from records protected by federal confidentiality rules (42 CFR part 2). The federal rules prohibit you from making any further disclosure of this information unless further disclosure is expressly permitted by the written consent of the person to whom it pertains or as otherwise permitted by 42 CFR part 2. A general authorization for the release of medical or other information is NOT sufficient for this purpose. The Federal rules restrict any use of the information to criminally investigate or prosecute any alcohol or drug abuse patient.The records that you are about to access may contain highly sensitive health information, the redisclosure of which is protected by Article 27-F of the [place] Public Health law. If you continue you may have access to information: Regarding HIV / AIDS; Provided by facilities licensed or operated by the [facility] Office of Mental Health; or Provided by the [facility] Office for People With Developmental Disabilities. If such information is present, then the following [facility] mandated warning applies: This information has been disclosed to you from confidential records which are protected by state law. State law prohibits you from making any further disclosure of this information without the specific written consent of the person to whom it pertains, or as otherwise permitted by law. Any unauthorized further disclosure in violation of state law may result in a fine or skilled nursing sentence or both. A general authorization for the release of medical or other information is NOT sufficient authorization for further disc losure. Family History Family Member Name Family Member Gender Family Member Status Date o f Status Description Data Source(s) Unknown Unknown Problem [facility] ([facility]) Unknown Male Problem MEDENT ([facility] ) Unknown Female Problem [facility] ([facility] Unknown Female Problem [facility] ([facility] Unknown Female Problem [facility] ([facility]) Unknown Female Problem [facility] ([facility]) Encounters Encounter Providers Location Date Indications Data Source(s ) Outpatient Attender: KARTHIK BARRERA [facility][note 3] 04/27 09:15:00 AM EDT MEDENT ([facility] Sonya Briscoe PA-C: [address] [place] [address], Ph. Attender: Sonya LAGOS [facility] Medical 05/14/2021 12:00:00 AM EDT [facility] ([facility]) KINJAL Ortiz: [address] [place] [address], Ph. Attender: Colleen ROBERTS [facility] Medical 03/21/2021 12:00:00 AM EDT [facility] ([facility]) KINJAL Ortiz: [address], [place] [address], Ph. Attender: Colleen Manriquez [facility] Medical 03/21/2021 12:00:00 AM EDT [facility] ([facility]) Colleen Manriquez [facility]: [address], [place] [address], Ph. Attender: Colleen Manriquez [facility] Medical 03/13/2021 12:00:00 AM EDT [facility] ([facility]) Colleen Manriquez [facility]: [address], [place] [address], Ph. Attender: Colleen Manriquez [facility] Medical 03/13/2021 12:00:00 AM EDT [facility] ([facility]) Colleen Manriquez [facility]: [address], [place] [address], Ph. Attender: Colleen Manriquez [facility] Medical 03/13/2021 12:00:00 AM EDT [facility] ([facility]) Outpatient Attender: ALEJANDRA ROBERTS 05/04/2020 11:57:01 A M EDT [facility] Outpatient Attender: ALEJANDRA ROBERTS 04/20/2020 08:01:03 P M EDT [facility] Outpatient Attender: ALEJANDRA ROBERTS 04/09/2020 12:12:00 P M EDT [facility] Outpatient Attender: Colleen ROBERTS 04/06/2020 09:2 5:01 AM EDT [facility] Outpatient Attender: ALEJANDRA ROBERTS 04/05/2020 04:36:01 P M EDT [facility]/05/2020 02:4 9:57 PM EDT [facility] Outpatient Attender: ALEJANDRA ROBERTS 04/05/2020 02:45:58 P M EDT [facility] Immunizations Vaccine Date Status Description Data Source(s) COVID-19, mRNA, LNP-S, PF, 100 mcg/0.5 mL dose 12/25/2020 12 :00:00 AM EDT completed 12/25/2020 [facility] ([facility]) COVID-19, mRNA, LNP-S, PF, 100 mcg/0.5 mL dose 12/25/2020 12 :00:00 AM EDT completed 12/25/2020 [facility] ([facility]) COVID-19, mRNA, LNP-S, PF, 100 mcg/0.5 mL dose 12/25/2020 12 :00:00 AM EDT completed 12/25/2020 [facility] ([facility]) COVID-19 VACCINE Moderna 12/25/2020 12:00:00 AM EDT completed [facility] Vaccine Series Complete: YESThis Data wa s Submitted to [facility] Via [employer] COVID-19, mRNA, LNP-S, PF, 100 mcg/0.5 mL dose 11/22/2020 12 :00:00 AM EDT completed 11/22/2020 [facility] ([facility]) COVID-19, mRNA, LNP-S, PF, 100 mcg/0.5 mL dose 11/22/2020 12 :00:00 AM EDT completed 11/22/2020 [facility] ([facility]) COVID-19, mRNA, LNP-S, PF, 100 mcg/0.5 mL dose 11/22/2020 12 :00:00 AM EDT completed 11/22/2020 [facility] ([facility]) COVID-19 VACCINE Moderna 11/22/2020 12:00:00 AM EDT completed [facility] Vaccine Series Complete: NOThis Data was Submitted to [facility] Via [employer] Medications Medication Brand Name Start Date Product Form Dose Route Admi nistrative Instructions Pharmacy Instructions Status Indications Reaction Description Data Source(s) Ibuprofen 800 MG Oral Tablet ibuprofen 8 00 mg tablet TAKE ONE TABLET BY MOUTH EVERY EIGHT HOURS NEEDED ibuprofen 800 mg tablet TAKE ONE TABLET BY MOUTH EVERY EIGHT HOURS NEEDED completed ibuprofen 800 MG Oral Tablet [facility] ([facility]) Amoxicillin 500 MG Oral Capsule amoxicil mercedes 500 mg capsule TAKE TWO CAPSULES BY MOUTH FOR FIRST DOSE THEN TAKE ONE CAPSULE BY MOUTH EVERY 8 HOURS UNTIL GONE amoxicillin 500 mg capsule TAKE TWO CAPSULES BY MOUTH FOR FIRST DOSE THEN TAKE ONE CAPSULE BY MOUTH EVERY 8 HOURS UNTIL GONE completed amoxicillin 500 MG Oral Capsule [facility] ([facility]) Amoxicillin 500 MG Oral Capsule amoxicil mercedes 500 mg capsule TAKE TWO CAPSULES BY MOUTH FOR FIRST DOSE THEN TAKE ONE CAPSULE BY MOUTH EVERY 8 HOURS UNTIL GONE amoxicillin 500 mg capsule TAKE TWO CAPSULES BY MOUTH FOR FIRST DOSE THEN TAKE ONE CAPSULE BY MOUTH EVERY 8 HOURS UNTIL GONE completed amoxicillin 500 MG Oral Capsule [facility] ([facility]) gabapentin 100 MG Oral Capsule gabapenti n 100 mg capsule TAKE ONE CAPSULE BY MOUTH TWICE DAILY gabapentin 100 mg capsule TAKE ONE CAPSU LE BY MOUTH TWICE DAILY completed gabapentin 100 M G Oral Capsule [facility] ([facility]) Amoxicillin 500 MG Oral Capsule amoxicil mercedes 500 mg capsule TAKE TWO CAPSULES BY MOUTH FOR FIRST DOSE THEN TAKE ONE CAPSULE BY MOUTH EVERY 8 HOURS UNTIL GONE amoxicillin 500 mg capsule TAKE TWO CAPSULES BY MOUTH FOR FIRST DOSE THEN TAKE ONE CAPSULE BY MOUTH EVERY 8 HOURS UNTIL GONE completed amoxicillin 500 MG Oral Capsule [facility] ([facility]) Ibuprofen 800 MG Oral Tablet ibuprofen 8 00 mg tablet TAKE ONE TABLET BY MOUTH EVERY EIGHT HOURS NEEDED ibuprofen 800 mg tablet TAKE ONE TABLET BY MOUTH EVERY EIGHT HOURS NEEDED completed ibuprofen 800 MG Oral Tablet [facility] ([facility]) Ibuprofen 800 MG Oral Tablet ibuprofen 8 00 mg tablet TAKE ONE TABLET BY MOUTH EVERY EIGHT HOURS NEEDED ibuprofen 800 mg tablet TAKE ONE TABLET BY MOUTH EVERY EIGHT HOURS NEEDED completed ibuprofen 800 MG Oral Tablet [facility] ([facility]) gabapentin 100 MG Oral Capsule gabapenti n 100 mg capsule TAKE ONE CAPSULE BY MOUTH TWICE DAILY gabapentin 100 mg capsule TAKE ONE CAPSU LE BY MOUTH TWICE DAILY completed gabapentin 100 M G Oral Capsule [facility] ([facility]) gabapentin 100 MG Oral Capsule gabapenti n 100 mg capsule TAKE ONE CAPSULE BY MOUTH TWICE DAILY gabapentin 100 mg capsule TAKE ONE CAPSU LE BY MOUTH TWICE DAILY completed gabapentin 100 M G Oral Capsule [facility] ([facility]) Insurance Providers Payer name Policy type / Coverage type Policy ID Covered republican ID Covered republican's relationship to ward Policy [place] Plan Information Managed Care - Community Plan [facility] [id number] S [id number] Medicaid S [id number] S [id number] Medicare P [id number] S [id number] A Managed Care - Community Plan [facility] P [id number] S [id number] MEDICARE A [id number] Self [id number] A Medicare P [id number] S [id number] A Medicaid S [id number] S [id number] Medicaid S [id number] S [id number] Medicare P [id number] S [id number] Medicare P [id number] S [id number] A Medicaid S [id number] S [id number] Medicare P [id number] S [id number] A Medicare P [id number] S [id number] A [employer] P [id number] S [id number] Medicare S [id number] S [id number] D Humana S [id number] S [id number] [employer] P [id number] S [id number] Medicaid Medigap Part B [id number] Self [facility] COMM PLAN [facility] W [id number] S [id number] [facility] P [id number] S [id number] [facility] MCDHMO [id number] SP [id number] [employer] [place] PLAN [id number] SP [id number] HMO BLUE [id number] SP [id number] HUMANA GOLD [id number] SP [id number] HUMANA GOLD [id number] SP [id number] HU[employer]NA HMO [id number] SP [id number] Medicaid S [id number] S [id number] MEDICAID -O/P EMERGENCY ROOM [id number] 18 [id number] MEDICARE PART A -O/P [id number] 18 [id number] MEDICAID -O/P EMERGENCY ROOM [id number] MEDICARE [id number] SP [id number] A MEDICAID [id number] SP [id number] [place] Medigap Part B [id number] Self [place] Primary [id number] Self MEDICAID M [id number] S [id number] MEDICARE C [id number] S [id number] A MEDICAID UNAVAILABLE UNAVAILA BLE [facility] [id number] [facility] Community Plan Commercial [id number] Self [facility] Community Plan-Caid Medicaid [id number] Self Problems, Conditions, and Diagnoses Code Display Name Description Problem Type Effective Dates Data Source(s) 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 Problem 05/28/2021 12:00:00 AM EDT Cristine HERCULES ([facility] [id number] Dental caries on smooth surface penetrat ing into pulp Dental Caries on Smooth Surface Penetrating into Pulp Problem 12:00:00 AM EDT - 05/14/2021 12:00:00 AM EDT [facility] ([facility]) [id number] Hearing finding Hearing Finding Problem 0 12:00:00 AM EDT - 05/14/2021 12:00:00 AM EDT [facility] ([facility]) [id number] Ear finding Ear Finding Problem 12/15/2019 12:0 0:00 AM EDT - 05/14/2021 12:00:00 AM EDT [facility] ([facility]) [id number] Clinical finding Clinical Finding Problem 020 12:00:00 AM EST - 05/14/2021 12:00:00 AM EDT [facility] ([facility]) [id number] Clinical finding Clinical Finding Problem 020 12:00:00 AM EST - 05/14/2021 12:00:00 AM EDT [facility] ([facility]) Surgeries/Procedures Procedure Description Date Indications Data Source(s) OFFICE OUTPATIENT NEW 30 MINUTES 05/23/2021 12:00:00 A M EDLauren GUTHRIE ([facility] Results ID Date Data Source [id number] 03/21/2021 08:59:00 AM EDT [facility] ([facility]) Name Value Range Interpretation Code Description Data Sanam rce(s) Supporting Document(s) PSA comment . PSA Comment [facility] ([facility]) PSA total 1.5 NG/mL 0.0-4.0 PSA Total [facility] ([facility]) ID Date Data Source [id number] 03/21/2021 08:59:00 AM EDT [facility] ([facility]) Name Value Range Interpretation Code Description Data Sanam rce(s) Supporting Document(s) HIV 1&2 screen centaur negative negative HIV 1&2 Scree n Centaur [facility] ([facility]) ID Date Data Source [id number] 03/21/2021 08:59:00 AM EDT [facility]) Name Value Range Interpretation Code Description Data Sanam rce(s) Supporting Document(s) ferritin 122 NG/mL 26-388 Ferritin [facility] ([facility]) ID Date Data Source [id number] 03/21/2021 08:59:00 AM EDT [facility]) Name Value Range Interpretation Code Description Data Sanam rce(s) Supporting Document(s) total 25(oh) vitamin D 19.9 NG/mL 30.0-100.0 Below low normal T otal 25(Oh) Vitamin D [facility] ([facility]) ID Date Data Source [id number] 03/21/2021 08:59:00 AM EDT [facility]) Name Value Range Interpretation Code Description Data Sanam rce(s) Supporting Document(s) vitamin B12 level 553 pg/mL Vitamin B12 Level [facility] ([facility]) folate 13.2 NG/mL Folate [facility] ([facility]) ID Date Data Source [id number] 03/21/2021 08:59:00 AM EDT [facility]) Name Value Range Interpretation Code Description Data Sanam rce(s) Supporting Document(s) thyroid stimulating hormone 1.410 uIU/mL 0.358-3.740 Thyroid Stimulating Hormone [facility] ([facility]) free T4 1.10 NG/dL 0.76-1.46 Free T4 [facility] ([facility]) ID Date Data Source [id number] 03/21/2021 08:59:00 AM EDT [facility] ([facility]) Name Value Range Interpretation Code Description Data Sanam rce(s) Supporting Document(s) iron (fe) 65 ug/dL 65-175 Iron (Fe) [facility] ([facility]) total iron binding capacity 307 ug/dL 250-450 Total Ir on Binding Capacity [facility] ([facility]) percent saturation 21.2 % 19.7-50.0 Percent Saturatio n [facility] ([facility]) ID Date Data Source [id number] 03/21/2021 08:59:00 AM EDT [facility] ([facility]) Name Value Range Interpretation Code Description Data Sanam rce(s) Supporting Document(s) cholesterol level 241 mg/dL <200 Above high normal Cholesterol Level [facility] ([facility]) triglycerides level 203 mg/dL <150 Above high normal Triglycer ides Level [facility] ([facility]) HDL cholesterol 38 mg/dL >40 Below low normal HDL Cholestero l [facility] ([facility]) Cholesterol in LDL [Mass/volume] in Serum or Plasma 162 mg/dL <100 Above high normal LDL Cholesterol [facility] ([facility]) non-HDL-C 203 mg/dL Non-hdl-c [facility] ([facility]) cholesterol risk ratio <5 Above high normal Choles terol Risk Ratio [facility] ([facility]) ID Date Data Source [id number] 03/21/2021 08:59:00 [facility] Name Value Range Interpretation Code Description Data Sanam rce(s) Supporting Document(s) hepatitis C virus rell index < 0.0 <0.8 Hepatiti s C Virus Rell Index [facility] ([facility]) ID Date Data Source [id number] 03/21/2021 08:59:00 AM EDT [facility] ([facility]) Name Value Range Interpretation Code Description Data Sanam rce(s) Supporting Document(s) glucose, fasting 102 mg/dL 70-100 Above high normal Glucose, Fas ting [facility] ([facility]) blood urea nitrogen 18 mg/dL 7-18 Blood Urea Nitro gen [facility] ([facility]) creatinine for GFR 0.79 mg/dL 0.70-1.30 Creatinine for GF R [facility] ([facility]) glomerular filtration rate > 60.0 >60 Glomerula r Filtration Rate [facility] ([facility]) sodium level 140 mEq/L 136-145 Sodium Level [facility] ([facility]) potassium serum 4.6 mEq/L 3.5-5.1 Potassium Serum ATHE NA ([facility]) chloride level 109 mEq/L 98-107 Above high normal Chloride Level CARLOS ([facility]) carbon dioxide level 24 mEq/L 21-32 Carbon Dioxide Level CARLOS ([facility]) anion gap 7 mEq/L 8-16 Below low normal Anion Gap CARLOS ( [facility]) AST/SGOT 23 U/L 7-37 AST/SGOT CARLOS ([facility]) calcium level 9.4 mg/dL 8.5-10.1 Calcium Level CARLOS ( [facility]) ALT/SGPT 47 U/L 12-78 ALT/SGPT CARLOS ([facility]) alkaline phosphatase 108 U/L 45-117 Alkaline Phosph atase CARLOS ([facility]) bilirubin,total 0.4 mg/dL 0.2-1.0 Bilirubin,total ATHE ([facility]) total protein 7.4 gm/dL 6.4-8.2 Total Protein CARLOS ( [facility]) albumin 4.1 gm/dL 3.2-5.2 Albumin CARLOS ([facility]) albumin/globulin ratio Albumin/globu mercedes Ratio CARLOS ([facility]) ID Date Data Source [id number] 03/21/2021 08:59:00 AM EDT MILLS ([facility]) Name Value Range Interpretation Code Description Data Sanam rce(s) Supporting Document(s) white blood count 11.7 10 4.0-10.0 Above high normal White Blood Count CARLOS ([facility]) red blood count 4.46 10 4.30-6.10 Red Blood Count ATHE ([facility]) hematocrit 41.4 % 42.0-52.0 Below low normal Hematocrit CARLOS ( [facility]) hemoglobin 13.7 g/dL 13.5-17.5 Hemoglobin CARLOS ([facility]) mean corpuscular volume 92.8 fL 80.0-96.0 Mean Corpusc ular Volume CARLOS ([facility]) mean corpuscular hemoglobin 30.7 pg 27.0-33.0 Mean Cor puscular Hemoglobin CARLOS ([facility]) mean corpuscular HGB conc 33.1 g/dL 32.0-36.5 Mean Corpu scular HGB Conc CARLOS ([facility]) red cell distribution width 14.2 % 11.5-14.5 Red Cell Distribution Width MILLS ([facility]) platelet count, automated tnp 150-450 Platelet C ount, Automated MILLS ([facility]) neutrophils % 71.7 % 36.0-66.0 Above high normal Neutrophils % A THENA ([facility]) lymph % 20.0 % 24.0-44.0 Below low normal Lymph % CARLOS ( [facility]) mono % 4.7 % 2.0-8.0 [place] % CARLOS ([facility]) eos % 2.5 % 0.0-3.0 Eos % CARLOS ([facility]) baso % 0.4 % 0.0-1.0 Baso % MILLS ([facility]) immature granulocyte % 0.7 % 0-3.0 Immature Gran ulocyte % CARLOS ([facility]) nucleated red blood cell % 0.0 % 0-0 Nucleated Red Blood Cell % CARLOS ([facility]) neutrophils # 8.4 10 1.5-8.5 Neutrophils # CARLOS ( [facility]) lymph # 2.3 10 1.5-5.0 Lymph # CARLOS ([facility]) mono # 0.6 10 0.0-0.8 [place] # CARLOS ([facility]) eos # 0.3 10 0.0-0.5 Eos # CARLOS ([facility]) baso # 0.1 10 0.0-0.2 Baso # CARLOS ([facility]) ID Date Data Source [id number] 03/21/2021 08:59:00 AM EDT [facility]) Name Value Range Interpretation Code Description Data Sanam rce(s) Supporting Document(s) Hemoglobin A1c/Hemoglobin.total in Blood 5.9 % Hemoglobin a1C MILLS ([facility]) estimated average glucose 123 mg/dL 60-110 Above high norm al Estimated Average Glucose MILLS ([facility]) ID Date Data Source [id number] 03/21/2021 08:59:00 AM EDT [facility]) Name Value Range Interpretation Code Description Data Sanam rce(s) Supporting Document(s) HIV 1&2 screen centaur negative negative HIV 1&2 Scree n Centaur MILLS ([facility]) ID Date Data Source [id number] 03/21/2021 08:59:00 AM EDT [facility]) Name Value Range Interpretation Code Description Data Sanam rce(s) Supporting Document(s) ferritin 122 NG/mL 26-388 Ferritin MILLS ([facility]) ID Date Data Source [id number] 03/21/2021 08:59:00 AM EDT [facility]) Name Value Range Interpretation Code Description Data Sanam rce(s) Supporting Document(s) total 25(oh) vitamin D 19.9 NG/mL 30.0-100.0 Below low normal T otal 25(Oh) Vitamin D CARLOS ([facility]) ID Date Data Source [id number] 03/21/[facility]21 08:59[facility] Name Value Range Interpretation Code Description Data Sanam rce(s) Supporting Document(s) vitamin B12 level 553 pg/mL Vitamin B12 Level CARLOS ([facility]) folate 13.2 NG/mL Folate CARLOS ([facility]) ID Date Data Source [id number] 03/21/2021 08:59:00 [facility] Name Value Range Interpretation Code Description Data Sanam rce(s) Supporting Document(s) thyroid stimulating hormone 1.410 uIU/mL 0.358-3.740 Thyroid Stimulating Hormone CARLOS ([facility]) free T4 1.10 NG/dL 0.76-1.46 Free T4 [facility]) ID Date Data Source [id number] 03/21/2021 08:59:00 [facility] Name Value Range Interpretation Code Description Data Sanam rce(s) Supporting Document(s) iron (fe) 65 ug/dL 65-175 Iron (Fe) CARLOS ([facility]) total iron binding capacity 307 ug/dL 250-450 Total Ir on Binding Capacity MILLS ([facility]) percent saturation 21.2 % 19.7-50.0 Percent Saturatio n MILLS ([facility]) ID Date Data Source [id number] 03/21/2021 08:59:00 AM EDT [facility]) Name Value Range Interpretation Code Description Data Sanam rce(s) Supporting Document(s) cholesterol level 241 mg/dL <200 Above high normal Cholesterol Level CARLOS ([facility]) Cholesterol in LDL [Mass/volume] in Serum or Plasma 162 mg/dL <100 Above high normal LDL Cholesterol [facility]OS ([facility]) triglycerides level 203 mg/dL <150 Above high normal Triglycer ides Level CARLOS ([facility]) HDL cholesterol 38 mg/dL >40 Below low normal HDL Cholestero l CARLOS ([facility]) cholesterol risk ratio <5 Above high normal Choles terol Risk Ratio CARLOS ([facility]) non-HDL-C 203 mg/dL Non-hdl-c CARLOS ([facility]) ID Date Data Source [id number] 03/21/2021 08:59:00 AM EDT MILLS ([facility]) Name Value Range Interpretation Code Description Data Sanam rce(s) Supporting Document(s) hepatitis C virus rell index < 0.0 <0.8 Hepatiti s C Virus Rell Index CARLOS ([facility]) ID Date Data Source [id number] 03/21/2021 08:59:00 AM EDT MILLS ([facility]) Name Value Range Interpretation Code Description Data Sanam rce(s) Supporting Document(s) blood urea nitrogen 18 mg/dL 7-18 Blood Urea Nitro gen CARLOS ([facility]) glucose, fasting 102 mg/dL 70-100 Above high normal Glucose, Fas ting CARLOS ([facility]) creatinine for GFR 0.79 mg/dL 0.70-1.30 Creatinine for GF R CARLOS ([facility]) glomerular filtration rate > 60.0 >60 Glomerula r Filtration Rate CARLOS ([facility]) potassium serum 4.6 mEq/L 3.5-5.1 Potassium Serum ATHE NA ([facility]) sodium level 140 mEq/L 136-145 Sodium Level CARLOS ([facility]) chloride level 109 mEq/L 98-107 Above high normal Chloride Level CARLOS ([facility]) AST/SGOT 23 U/L 7-37 AST/SGOT CARLOS ([facility]) carbon dioxide level 24 mEq/L 21-32 Carbon Dioxide Level CARLOS ([facility]) calcium level 9.4 mg/dL 8.5-10.1 Calcium Level CARLOS ( [facility]) anion gap 7 mEq/L 8-16 Below low normal Anion Gap CARLOS ( [facility]) total protein 7.4 gm/dL 6.4-8.2 Total Protein CARLOS ( [facility]) bilirubin,total 0.4 mg/dL 0.2-1.0 Bilirubin,total ATHE NA ([facility]) alkaline phosphatase 108 U/L 45-117 Alkaline Phosph atase CARLOS ([facility]) ALT/SGPT 47 U/L 12-78 ALT/SGPT CARLOS ([facility]) albumin/globulin ratio Albumin/globu mercedes Ratio CARLOS ([facility]) albumin 4.1 gm/dL 3.2-5.2 Albumin CARLOS ([facility]) ID Date Data Source [id number] 03/21/2021 08:59:00 AM EDT CARLOS ([facility]) Name Value Range Interpretation Code Description Data Sanam rce(s) Supporting Document(s) white blood count 11.7 10 4.0-10.0 Above high normal White Blood Count CARLOS ([facility]) hemoglobin 13.7 g/dL 13.5-17.5 Hemoglobin CARLOS ([facility]) red blood count 4.46 10 4.30-6.10 Red Blood Count ATHE ([facility]) hematocrit 41.4 % 42.0-52.0 Below low normal Hematocrit CARLOS ( [facility]) mean corpuscular HGB conc 33.1 g/dL 32.0-36.5 Mean Corpu scular HGB Conc CARLOS ([facility]) mean corpuscular hemoglobin 30.7 pg 27.0-33.0 Mean Cor puscular Hemoglobin CARLOS ([facility]) mean corpuscular volume 92.8 fL 80.0-96.0 Mean Corpusc ular Volume CARLOS ([facility]) platelet count, automated tnp 150-450 Platelet C ount, Automated CARLOS ([facility]) neutrophils % 71.7 % 36.0-66.0 Above high normal Neutrophils % A THENA ([facility]) red cell distribution width 14.2 % 11.5-14.5 Red Cell Distribution Width CARLOS ([facility]) eos % 2.5 % 0.0-3.0 Eos % CARLOS ([facility]) mono % 4.7 % 2.0-8.0 [place] % CARLOS ([facility]) baso % 0.4 % 0.0-1.0 Baso % MILLS ([facility]) lymph % 20.0 % 24.0-44.0 Below low normal Lymph % CARLOS ( [facility]) nucleated red blood cell % 0.0 % 0-0 Nucleated Red Blood Cell % MILLS ([facility]) immature granulocyte % 0.7 % 0-3.0 Immature Gran ulocyte % MILLS ([facility]) neutrophils # 8.4 10 1.5-8.5 Neutrophils # CARLOS ( [facility]) lymph # 2.3 10 1.5-5.0 Lymph # CARLOS ([facility]) mono # 0.6 10 0.0-0.8 [place] # CARLOS ([facility]) eos # 0.3 10 0.0-0.5 Eos # CARLOS ([facility]) baso # 0.1 10 0.0-0.2 Baso # CARLOS ([facility]) ID Date Data Source [id number] 03/21/2021 08:59:00 AM EDT MILLS ([facility]) Name Value Range Interpretation Code Description Data Sanam rce(s) Supporting Document(s) Hemoglobin A1c/Hemoglobin.total in Blood 5.9 % Hemoglobin a1C CARLOS ([facility]) estimated average glucose 123 mg/dL 60-110 Above high norm al Estimated Average Glucose MILLS ([facility]) Procedure Social History No Information Vital Signs ID Date Data Source UNK Name Value Range Interpretation Code Description Data Source(s) Heart rate 82 /min 82 /min MEDENT ([facility] Body height 66 [in_i] 66 [in_i] MEDENT ([facility] 5'6" Body weight 207.00 [lb_av] 207.00 [lb_av] MEDEN T ([facility] Systolic blood pressure 130 mm[Hg] 130 mm[Hg] M EDENT ([facility] Diastolic blood pressure 81 mm[Hg] 81 mm[Hg] MEDENT ([facility] Body mass index (BMI) [Ratio] 33.4 kg/m2 33.4 k g/m2 MEDENT ([facility] Diastolic blood pressure 88 mm[Hg] 88 mm[Hg] CARLOS ([facility]) Body height 66 [in_i] 66 [in_i] CARLOS ([facility]) Body mass index (BMI) [Ratio] 33.9 kg/m2 33.9 k g/m2 CARLOS ([facility]) Systolic blood pressure 126 mm[Hg] 126 mm[Hg] A THENA ([facility]) Body weight 3364 [oz_av] 3364 [oz_av] CARLOS ([facility]) Body height 66 [in_i] 66 [in_i] CARLOS ([facility]) Body height 66 [in_i] 66 [in_i] CARLOS ([facility]) Body height 66 [in_i] 66 [in_i] CARLOS ([facility]) Body mass index (BMI) [Ratio] 33.5 kg/m2 33.5 k g/m2 CARLOS ([facility]) Systolic blood pressure 130 mm[Hg] 130 mm[Hg] A THENA ([facility]) Diastolic blood pressure 81 mm[Hg] 81 mm[Hg] CARLOS ([facility]) Body weight 3316 [oz_av] 3316 [oz_av] CARLOS ([facility]) Diastolic blood pressure 81 mm[Hg] 81 mm[Hg] CARLOS ([facility]) Body height 66 [in_i] 66 [in_i] CARLOS ([facility]) Body mass index (BMI) [Ratio] 33.5 kg/m2 33.5 k g/m2 CARLOS ([facility]) Systolic blood pressure 130 mm[Hg] 130 mm[Hg] A THENA ([facility]) Body weight 3316 [oz_av] 3316 [oz_av] CARLOS ([facility]) Diastolic blood pressure 81 mm[Hg] 81 mm[Hg] CARLOS ([facility]) Body height 66 [in_i] 66 [in_i] CARLOS ([facility]) Body mass index (BMI) [Ratio] 33.5 kg/m2 33.5 k g/m2 CARLOS ([facility]) Systolic blood pressure 130 mm[Hg] 130 mm[Hg] A THENA ([facility]) Body weight 3316 [oz_av] 3316 [oz_av] CARLOS ([facility]) Patient Treatment Plan of Care Planned Activity Planned Date Details Description Data Source (s) [facility] 800 [facility] Ib[facility]fen 800 [facility]
[2021-06-05 11:07] VITALS: BP 144/85
== END | disposition home or self-care (01) ==
LOC: M SDC 10:33
PROVIDERS: ATTEND Podiatrist Foot & Ankle Surgery
DX: L98.9 Disorder of the skin and subcutaneous tissue, unspecified (principal); Z53.29 Procedure and treatment not carried out because of patient's decision for other reasons